=== PATIENT | female | born 1995 | race American Indian/Alaskan Native ===

== ENCOUNTER 2018-08-08 13:15 | Emergency (ER) | payer SELFPAY ==
--- NOTE | 2018-08-08 13:38 | Emergency Department Report ---
Blank Doc - Documentation Documentation: This is a 22-year-old female that presents with pelvic pain with radiation to lower back. Denies any urinary symptoms. Denies any vaginal bleeding or discharge. Denies any other complaints. Denies any nausea or vomiting. This initial assessment diagnostic orders/clinical plan/treatment(s) is/are subject to change based on patient's health status, clinical progression and re- assessment by fellow clinical providers in the ED. Further treatment and workup at subsequent clinical providers discretion. Patient/guardians urged not to elope from ED s their condition may be serious if not clinically assessed and managed. Initial orders include: 1-Patient sent to [facility] for further evaluation and treatment 2- Labs 3- UA
[2018-08-08 14:22] LABS: Basophils % (Auto) 0.5 % (0.0-1.8); Eosinophils % (Auto) 0.5 % (0.0-4.3); Hemoglobin 12.3 gm/dl (10.1-14.3); Mean Corpuscular HGB Conc 32 % (30-34); Mean Corpuscular Volume 94 fl (79-97); Monocytes # (Auto) 0.7 K/mm3 (0.0-0.8); Monocytes % (Auto) 9.8 % (0.0-7.3); Platelet Count 403 K/mm3 (140-440); Red Blood Count 4.05 M/mm3 (3.65-5.03); Red Cell Distribution Width 14.5 % (13.2-15.2)
[2018-08-08 14:37] LABS: Alanine Aminotransferase 7 units/L (7-56); Albumin 3.9 g/dL (3.9-5); BUN/Creatinine Ratio 20; Blood Urea Nitrogen 10 mg/dL (7-17); Calcium 9.3 mg/dL (8.4-10.2); Hemolysis Index 5
[2018-08-08 14:41] LABS: Bacteria,Urine 1+ /HPF (Negative); Bilirubin,Urine NEG (Negative); Blood,Urine SM (Negative); Color,Urine Amber (Yellow); Mucus,Urine 3+ /HPF
[2018-08-08 14:42] LABS: HCG Qualitative,Urine Negative (Negative)
--- NOTE | 2018-08-08 15:34 | Emergency Department Report ---
ED Abdominal Pain HPI - General Chief Complaint: Extremity Injury, Lower Stated Complaint: PELVIC PAIN Time Seen by Provider: 08/08/18 13:37 Source: family Mode of arrival: Ambulatory Limitations: No Limitations - History of Present Illness Initial Comments: This is a 22 yo female here complaining that she has vaginal discharge and she was in [place] last week and got tested for STDs and she had PV but everything else was negative and they called her later running told her that her gonorrhea and chlamydia is negative. She said they also told her that she has PID. She states that she did not do a pelvic exam basis. The swab in her. She is complaining of some pelvic pain and denies any vaginal bleeding. Denies any back pain. Pain is rated a 10 to pelvic on and off. Last menstrual cycle was 07/24/2018. She said it started her on antibiotics for PID and BV but she came here and he could not transfer of antibiotics so that is why she is here today. Complaint: abdominal pain Onset/Timin -: week(s) Location: suprapubic Radiation: none Migration to: no migration Severity: severe Severity scale (0 -10): 8 Quality: cramping Consistency: intermittent Improves With: nothing Worsens With: nothing Context: other (bacterial vaginosis and PID) Associated Symptoms: dysuria. denies: nausea, vomiting, diarrhea, fever, chills, constipation, hematemesis, hematochezia, melena, hematuria, anorexia, syncope Treatments Prior to Arrival: other (none) - Related Data LMP Date: 07/24/18 Previous Rx's Medication Instructions Recorded Last Taken Type Doxycycline [Vibramycin CAP] 100 mg PO Q12HR 7 Days #14 capsule 08/08/18 Unknown Rx Naproxen [Naprosyn] 500 mg PO Q12H PRN #12 tablet 08/08/18 Unknown Rx cephALEXin [Keflex] 500 mg PO Q12HR 7 Days #14 cap 08/08/18 Unknown Rx metroNIDAZOLE [Flagyl] 500 mg PO Q12HR 7 Days #14 tab 08/08/18 Unknown Rx Allergies Allergy/AdvReac Type Severity Reaction Status Date / Time No Known Allergies Allergy Unverified 08/08/18 15:35 ED Review of Systems ROS: Stated complaint: PELVIC PAIN Other details as noted in HPI Constitutional: denies: chills, fever Eyes: denies: eye pain, eye discharge ENT: denies: ear pain, throat pain, congestion Respiratory: denies: cough, shortness of breath, wheezing Cardiovascular: denies: chest pain, palpitations, edema, syncope Gastrointestinal: abdominal pain. denies: nausea, vomiting, constipation Genitourinary: dysuria, discharge, other (she says she has not had sex in 2 weeks.). denies: urgency, frequency, hematuria, abnormal menses, dyspareunia Skin: denies: rash Neurological: denies: headache, abnormal gait ED Past Medical Hx - Past Medical History Previous Medical History?: No Hx Hypertension: No Hx CVA: No Hx Heart Attack/AMI: No Hx Congestive Heart Failure: No Hx Diabetes: No Hx Deep Vein Thrombosis: No Hx Pulmonary Embolism: No Hx GERD: No Hx Liver Disease: No Hx Renal Disease: No Hx of Cancer: No Hx Sickle Cell Disease: No Hx Arthritis: No Hx Headaches / Migraines: No Hx Seizures: No Hx Kidney Stones: No Hx Psychiatric Treatment: No Hx Asthma: No Hx COPD: No Hx Tuberculosis: No Hx Dementia: No Hx HIV: No - Surgical History Past Surgical History?: No Hx Coronary Stent: No Hx Open Heart Surgery: No Hx Pacemaker: No Hx Internal Defibrillator: No Hx Cholecystectomy: No Hx Appendectomy: No Hx Breast Surgery: No - Family History Family history: no significant - Social History Smoking Status: Never Smoker Substance Use Type: None - Medications Home Medications: Home Medications Medication Instructions Recorded Confirmed Last Taken Type Doxycycline [Vibramycin CAP] 100 mg PO Q12HR 7 Days #14 capsule 08/08/18 Unknown Rx Naproxen [Naprosyn] 500 mg PO Q12H PRN #12 tablet 08/08/18 Unknown Rx cephALEXin [Keflex] 500 mg PO Q12HR 7 Days #14 cap 08/08/18 Unknown Rx metroNIDAZOLE [Flagyl] 500 mg PO Q12HR 7 Days #14 tab 08/08/18 Unknown Rx ED Physical Exam - General Limitations: No Limitations General appearance: alert, in no apparent distress - Head Head exam: Present: atraumatic, normocephalic, normal inspection - Eye Eye exam: Present: normal appearance, PERRL, EOMI Pupils: Present: normal accommodation - ENT ENT exam: Present: normal exam, normal orophraynx, mucous membranes moist - Neck Neck exam: Present: normal inspection, full ROM. Absent: tenderness, lymphadenopathy - Respiratory Respiratory exam: Present: normal lung sounds bilaterally. Absent: respiratory distress, chest wall tenderness - Cardiovascular Cardiovascular Exam: Present: normal rhythm, tachycardia, normal heart sounds. Absent: systolic murmur, diastolic murmur - GI/Abdominal GI/Abdominal exam: Present: soft, tenderness (mild tenderness), normal bowel sounds. Absent: distended, guarding, rebound, rigid, organomegaly, mass - External exam: Present: normal external exam. Absent: erythema, swelling, lesions, lacerations, ecchymosis, bleeding Speculum exam: Present: vaginal discharge, cervical discharge. Absent: normal speculum exam, erythema, vaginal bleeding, foreign body, tissue, laceration Bi-manual exam: Present: cervical motion tendernes (moderate). Absent: normal bi-manual exam, adnexal tenderness, adnexal mass, uterine enlargement, uterine tenderness - Extremities Exam Extremities exam: Present: normal inspection, full ROM, normal capillary refill, other (No cce. + 2 pulses in all extremities, no neurovascular compromise). Absent: tenderness, pedal edema, joint swelling - Back Exam Back exam: Present: normal inspection, full ROM, other (ambulates without any difficulties). Absent: tenderness, CVA tenderness (R), CVA tenderness (L), muscle spasm, paraspinal tenderness, vertebral tenderness, rash noted - Neurological Exam Neurological exam: Present: alert, oriented X3, normal gait, reflexes normal. Absent: motor sensory deficit - Psychiatric Psychiatric exam: Present: normal affect, normal mood - Skin Skin exam: Present: warm, dry, intact, normal color. Absent: rash ED Course Vital Signs 08/08/18 08/08/18 08/08/18 13:38 18:37 19:34 Temperature 97.6 F Pulse Rate 116 H 92 H Respiratory 16 15 Rate Blood Pressure 109/61 Blood Pressure 109/61 113/65 [Right] O2 Sat by Pulse 100 99 Oximetry Vital Signs 08/08/18 08/08/18 13:38 18:37 Temperature 97.6 F Pulse Rate 116 H 92 H Respiratory 16 Rate Blood Pressure 109/61 Blood Pressure 109/61 [Right] O2 Sat by Pulse 100 Oximetry - Reevaluation(s) Reevaluation #1: 08/08/18 18:37 Patient stable throughout ED course. No requested pain medication. Her heart rate is below 100 at present. 18 Reevaluation #2: 08/08/18 18:55 Patient treated for PID, UTI and bacterial vaginosis and also pelvic pain. She was given Rocephin 250 mg to start treatment. ED Medical Decision Making - Lab Data Result diagrams: 08/08/18 14:02 08/08/18 14:02 Lab Results 08/08/18 08/08/18 08/08/18 Range/Units 14:02 14:02 14:05 WBC 7.4 (4.5-11.0) K/mm3 RBC 4.05 (3.65-5.03) M/mm3 Hgb 12.3 (10.1-14.3) gm/dl Hct 38.0 (30.3-42.9) % MCV 94 (79-97) fl MCH 30 (28-32) pg MCHC 32 (30-34) % RDW 14.5 (13.2-15.2) % Plt Count 403 (140-440) K/mm3 Lymph % (Auto) 14.0 (13.4-35.0) % [place] % (Auto) 9.8 H (0.0-7.3) % Eos % (Auto) 0.5 (0.0-4.3) % Baso % (Auto) 0.5 (0.0-1.8) % Lymph # 1.0 L (1.2-5.4) K/mm3 [place] # 0.7 (0.0-0.8) K/mm3 Eos # 0.0 (0.0-0.4) K/mm3 Baso # 0.0 (0.0-0.1) K/mm3 Seg Neutrophils % 75.2 H (40.0-70.0) % Seg Neutrophils # 5.6 (1.8-7.7) K/mm3 Sodium 137 (137-145) mmol/L Potassium 4.3 (3.6-5.0) mmol/L Chloride 100.4 (98-107) mmol/L Carbon Dioxide 24 (22-30) mmol/L Anion Gap 17 mmol/L BUN 10 (7-17) mg/dL Creatinine 0.5 L (0.7-1.2) mg/dL Estimated GFR > 60 ml/min BUN/Creatinine Ratio 20 % Glucose 84 (65-100) mg/dL Calcium 9.3 (8.4-10.2) mg/dL Total Bilirubin 0.30 (0.1-1.2) mg/dL AST 12 (5-40) units/L ALT 7 (7-56) units/L Alkaline Phosphatase 62 (35-129) units/L Total Protein 8.4 H (6.3-8.2) g/dL Albumin 3.9 (3.9-5) g/dL Albumin/Globulin Ratio 0.9 % Urine Color Sherice (Yellow) Urine Turbidity Clear (Clear) Urine pH 5.0 (5.0-7.0) Ur Specific [place] 1.029 (1.003-1.030) Urine Protein 100 mg/dl (Negative) mg/dL Urine Glucose (UA) Neg (Negative) mg/dL Urine Ketones 20 (Negative) mg/dL Urine Blood Sm (Negative) Urine Nitrite Neg (Negative) Urine Bilirubin Neg (Negative) Urine Urobilinogen 4.0 (<2.0) mg/dL Ur Leukocyte Esterase Tr (Negative) Urine WBC (Auto) 5.0 (0.0-6.0) /HPF Urine RBC (Auto) 30.0 (0.0-6.0) /HPF U Epithel Cells (Auto) 3.0 (0-13.0) /HPF Urine Bacteria (Auto) 1+ (Negative) /HPF Urine Mucus 3+ /HPF Urine HCG, Qual Negative (Negative) Wet prep positive bacterial vaginosis, negative Trichomonas and negative yeast CHL pending results Urine culture pending - Medical Decision Making A 22-year-old female here report that she was checked in [place] last week for STDs and was positive for BV. She said they called her later about 3 days and told her that her gonorrhea and chlamydia was negative. She said that they also told that she had pelvic inflammatory disease and she came to [place] and they could not transfer prescription from [place]. Labs: Wet prep positive for bacterial vaginosis otherwise negative Urinalysis-trace leukocyte esterase, 1+ bacteria with dysuria so will cover patient with antibiotic. Urine culture sent and is negative. CHL-Pending results Assessment/plan 1: Pelvic inflammatory disease-positive CMT doing pelvic exam-will discharge home. Rocephin 250 mg IM and we will discharge home with doxycycline pelvic pain 2-vaginal discharge and blood prep positive bacterial vaginosis-we will discharge home on Flagyl 3 pelvic pain-we will discharge home on naproxen 4 dysuria patient with positive UTI-we will sent home on Keflex. I will refer patient to [facility]. I discussed her laboratory results, urinalysis and told her that she needs to follow up with [facility] in 5 days. Also told that she has to have repeat STD check in 7-10 days. I discussed her diagnosis and treatment plan. Patient vital signs stable she is afebrile. I am discharging with little baby. Discharge home with prescription for doxycycline and, naproxen, Flagyl and Keflex - Differential Diagnosis HCG, UTI, PID Critical care attestation.: If time is entered above; I have spent that time in minutes in the direct care of this critically ill patient, excluding procedure time. ED Disposition Clinical Impression: Pelvic inflammatory disease (PID), Pelvic pain, Vaginal discharge, Bacterial vaginosis Acute cystitis Qualifiers: Hematuria presence: without hematuria Qualified Code(s): N30.00 - Acute cystitis without hematuria Disposition: TO HOME OR SELFCARE Is pt being admited?: No Does the pt Need Aspirin: No Condition: Stable Instructions: Pelvic Inflammatory Disease (ED), Bacterial Vaginosis (ED), Urinary Tract Infection in Women (ED), Dysuria (ED), Abdominal Pain (ED) Additional Instructions: Please follow up with [facility] on 08/13/2018. also needs to have repeat STD check in 7-10 days. You can have [facility] department Please see medication as prescribed Increase her fluid intake Use good Rx prescription card given to use to get discount on medication If his symptoms worsen, return to the emergency room otherwise follow-up with [facility] and PCP that has recommended a discharge instruction paperwork Prescriptions: cephALEXin [Keflex] 500 mg PO Q12HR 7 Days #14 cap Doxycycline [Vibramycin CAP] 100 mg PO Q12HR 7 Days #14 capsule metroNIDAZOLE [Flagyl] 500 mg PO Q12HR 7 Days #14 tab Naproxen [Naprosyn] 500 mg PO Q12H PRN #12 tablet PRN Reason: pelvic pain Referrals: BC HOOKS MD [Staff Physician] - 08/13/18 [place] IZAIAH ALMANZAR MD [Primary Care Provider] - 08/13/18 [facility] [Outside] - 7-10 days Forms: STI Treatment and Prevention, Work/School Release Form(ED)
[2018-08-08 19:35] VITALS: BP 113/65
== END 2018-08-08 19:39 | disposition home or self-care (01) ==
LOC: ED 13:15
DX: N30.00 Acute cystitis without hematuria (principal); N73.9 Female pelvic inflammatory disease, unspecified; N76.0 Acute vaginitis
CPT/HCPCS: 36415; 80053; 81001; 81025; 85025; 87086; 87210; 87591